=== PATIENT | female | born 1985 | race Caucasian/White ===

== ENCOUNTER 2016-11-28 00:47 | Emergency (ER) | payer BC ==
[2016-11-28 01:06] VITALS: BP 129/86
--- NOTE | 2016-11-28 01:35 | EDM.PDOC ---
[id number] LT TOOTH PAIN Time Seen by Provider: 11/28/16 01:15 Source of Information: Reports: Patient History Limitations: Reports: No Limitations - History of Present Illness INITIAL COMMENTS - FREE TEXT/NARRATIVE: 31-year-old with recurring left maxillary dental pain for the last few years but the last 5 or 6 days have been worse. The pain is localized underneath her crown of the second molar of the left maxilla. No significant swelling or fever. Onset: Gradual Quality: Reports: Ache, Stabbing Severity: Moderate Associated Symptoms: Reports: No Other Symptoms Upper Left Pain Score (Numeric/FACES): 8 - Related Data Allergies Allergy/AdvReac Type Severity Reaction Status Date / Time Penicillins Allergy Rash Verified 11/28/16 01:07 cefuroxime [From Ceftin] AdvReac Nausea and Verified 11/28/16 01:07 Vomiting Home Meds: Home Meds DULoxetine HCl [Cymbalta] 120 mg PO DAILY 11/28/16 [History] LORazepam [Ativan] 1 mg PO ASDIRECTED 11/28/16 [History] Zolpidem Tartrate [Ambien] 10 - 20 mg PO BEDTIME PRN 11/28/16 [History] buPROPion [Wellbutrin XL] 300 mg PO BEDTIME 11/28/16 [History] Past Medical History - Past Surgical History Female Surgical History: Reports: Other (See Below) Other Female Surgeries/Procedures: Breast lift Social & Family History - Tobacco Use Smoking Status *Q: Current Every Day Smoker Years of Tobacco use: 10 Packs/Tins Daily: 0.5 - Caffeine Use Caffeine Use: Reports: Coffee, Soda - Recreational Drug Use Recreational Drug Use: No ED ROS ENT - Review of Systems Review Of Systems: See Below Constitutional: Denies: Fever, Chills Respiratory: Denies: Shortness of Breath GI/Abdominal: Denies: Abdominal Pain Skin: Reports: No Symptoms Neurological: Denies: Headache ED EXAM, ENT - Physical Exam Exam: See Below Exam Limited By: No Limitations General Appearance: Alert, No Apparent Distress (Looks uncomfortable) Mouth/Throat: Other (The second molar of the left maxilla has a crown, no significant gingival swelling but very tender to percussion) Respiratory/Chest: No Respiratory Distress Neurological: Alert, Oriented Psychiatric: Normal Affect, Normal Mood Skin: Warm, Dry Course - Vital Signs Last Recorded V/S: Last Vital Signs Temp 99.0 F 11/28/16 01:01 Pulse 87 11/28/16 01:01 Resp 14 11/28/16 01:01 BP 129/86 11/28/16 01:01 Pulse Ox 97 11/28/16 01:01 - Re-Assessments/Exams Free Text/Narrative Re-Assessment/Exam: 11/28/16 01:33 Patient was placed on clindamycin 300 mg 3 times a day and given 10 day supply. Also given 10 hydrocodone for extra pain control. She is going to try to get into a dentist in the [facility] over the next couple of days, she' ll call Monday if she needs a [facility] referral. Departure - Departure Time of Disposition: 01:39 Disposition: Home, Self-Care 01 Condition: good Clinical Impression: Dental abscess - Discharge Information Instructions: Dental Abscess, [id number] Referrals: Nadine Sotelo PA [Primary Care Provider] - Forms: ED Department Discharge Care Plan Goals: Take antibiotics as prescribed. Take an anti-inflammatory such as ibuprofen or naproxen and add stronger pain medications if needed. Call Monday if you need a [facility] dental referral.
== END 2016-11-28 01:50 | disposition home or self-care (01) ==
LOC: JP.ED 00:47
DX: K04.7 Periapical abscess without sinus (principal); F17.210 Nicotine dependence, cigarettes, uncomplicated; Z79.899 Other long term (current) drug therapy; Z88.0 Allergy status to penicillin; Z88.1 Allergy status to other antibiotic agents
CPT/HCPCS: 99283